=== PATIENT | male | born 1950 | race Caucasian/White ===

== ENCOUNTER 2017-04-20 09:29 | Emergency (ER) | payer MEDICARE ==
[~2017-04-20] VITALS: Ht 172.7 cm; Wt 95.3 kg
[2017-04-20 09:44] VITALS: BP 112/73
[2017-04-20] MEDS ORDERED: NEOMYCIN-BACITRACIN-POLYM 15GM TOP OINT TOP ONE ×2 (11:06→11:15)
[2017-04-20] MEDS ORDERED: NEOMYCIN-BACITRACIN-POLYM UNITDOSE PKG TOP OINT TOP SCH (11:13)
== END 2017-04-20 11:39 | disposition home or self-care (01) ==
LOC: ER 09:29
DX: S50.02XA Contusion of left elbow, initial encounter (principal); S80.212A Abrasion, left knee, initial encounter; S60.221A Contusion of right hand, initial encounter; I25.10 Atherosclerotic heart disease of native coronary artery without angina pectoris; W17.89XA Other fall from one level to another, initial encounter; Y93.89 Activity, other specified; Y92.89 Other specified places as the place of occurrence of the external cause; Y99.8 Other external cause status
CPT/HCPCS: 73080; 73130

== ENCOUNTER 2017-04-28 07:41 | Emergency (ER) | payer MEDICARE ==
[~2017-04-28] VITALS: Ht 172.7 cm; Wt 95.3 kg
[2017-04-28 09:22] LABS: Basophils # (auto) 0 uL; Basophils % (auto) 0.5 % (0.0-2.0); CONDITION Y; Eosinophils # (auto) 0.3 uL; Eosinophils % (auto) 5.7 % (0.0-7.0); Hemoglobin 14.8 g/dL (13.5-17.5); Lymphocytes # (auto) 0.9 uL; Mean Corpuscular Hemoglobin 29.1 pg (28.0-32.0); Mean Corpuscular Hgb Conc. 33.6 g/dL (32.0-36.0); Mean Corpuscular Volume 86.5 fL (80.0-100.0); Mean Platelet Volume 8.9 fL (6.9-10.8); Monocytes # (auto) 0.7 uL; Monocytes % (auto) 11.6 % (0.0-12.0); Neutrophils # (auto) 3.7 uL; Neutrophils % (auto) 66.2 % (37.0-80.0); Platelet Count (auto) 260 10^3/uL (140-450); Red Cell Distribution Width 13.9 % (11.8-14.3); White Blood Cell 5.7 10^3/uL (4.4-10.8)
[2017-04-28 09:45] LABS: Albumin 3.6 g/dL (3.4-5.0); Alkaline Phosphatase 77 U/L (45-117); Anion Gap 6 (5-15); Aspartate Aminotransferase 32 U/L (15-37); BUN/Creatinine Ratio 13.3; Bilirubin, Total 0.7 mg/dL (0.2-1.0); Blood Urea Nitrogen 13 mg/dL (7-18); Calcium 8.6 mg/dL (8.5-10.1); Carbon Dioxide 27 mmol/L (21-32); Chloride 107 mmol/L (98-107); GFR African American 98 mL/min; GFR Non-African American 81 mL/min; Glucose 99 mg/dL (74-106); Magnesium 2.3 mg/dL (1.6-2.6); Sodium 140 mmol/L (136-145); Total Protein 7.6 g/dL (6.4-8.2)
[2017-04-28 13:29] VITALS: BP 108/53
== END 2017-04-28 14:08 | disposition home or self-care (01) ==
LOC: ER 07:41
DX: I20.9 Angina pectoris, unspecified (principal); I25.10 Atherosclerotic heart disease of native coronary artery without angina pectoris; Z95.0 Presence of cardiac pacemaker
CPT/HCPCS: 36415; 71020; 80053; 83735; 84443; 84484; 85025; 93005

== ENCOUNTER 2022-09-07 07:21 | Day surgery (SDC) | payer MEDICARE, OTHER ==
[2022-09-07] VITALS (7 sets, daily range): BP systolic 104–122; BP diastolic 61–80
[2022-09-07] MEDS ORDERED: LIDOCAINE 2%HCL (LOCAL ANESTH.) INJ 10ml MDV ONE (07:40)
[2022-09-07] MEDS ORDERED: IODIXANOL 320MG/ML 100ML BTL IV ONE (07:40)
[2022-09-07] MEDS ORDERED: IOHEXOL 350 MG/ML 100ML IJ ONE (07:40)
[2022-09-07] MEDS ORDERED: HEPARIN SODIUM (PORCINE) 5000 UNITS/ML 1ML VIAL ONE (07:47)
[2022-09-07] MEDS ORDERED: ANGIOMAX 250 MG VIAL IV ONE (07:47)
[2022-09-07] MEDS ORDERED: SODIUM CHL 0.9% 0 ML ONE (07:48)
[2022-09-07] MEDS ORDERED: VERAPAMIL 2.5MG/ML INJ 2ML VIAL IV ONE (07:48)
[2022-09-07] MEDS ORDERED: fentaNYL CITRATE 100 MCG/2 ML VL ONE (07:48)
[2022-09-07] MEDS ORDERED: MIDAZOLAM HCL 2MG/2ML 2ml VIAL (1mg/ml) ONE (07:48)
[2022-09-07] MEDS ORDERED: ATOR20TA50 PO (10:23)
[2022-09-07] MEDS ORDERED: CARV3.1240 PO (10:23)
[2022-09-07] MEDS ORDERED: CLOP75TA28 PO (10:23)
== END 2022-09-07 10:40 | disposition home or self-care (01) ==
LOC: CATH 07:21
PROVIDERS: ATTEND Internal Medicine Cardiovascular Disease
DX: I25.10 Atherosclerotic heart disease of native coronary artery without angina pectoris (principal); I50.20 Unspecified systolic (congestive) heart failure; E78.5 Hyperlipidemia, unspecified; R73.03 Prediabetes; I25.5 Ischemic cardiomyopathy; Z80.0 Family history of malignant neoplasm of digestive organs; Z87.891 Personal history of nicotine dependence; Z20.822 Contact with and (suspected) exposure to COVID-19; Z95.5 Presence of coronary angioplasty implant and graft
CPT/HCPCS: 93458; 99152; 99153; C1769; C1894; C9803; J0583; J1644; J2001; J2250; J3010; J7030; Q9967; U0003